=== PATIENT | female | born 1980 | race Caucasian/White ===

== ENCOUNTER 2018-07-06 21:31 | Emergency (ER) | payer OTHER ==
[2018-07-07] MEDS: ONDANSETRON (ODT) 4 MG TAB ODT (00:38)
== END 2018-07-07 01:02 | disposition home or self-care (01) ==
LOC: FTE 21:31
DX: R11.10 Vomiting, unspecified (principal)
CPT/HCPCS: 99283; Z7502

== ENCOUNTER 2018-10-14 19:52 | Emergency (ER) | payer OTHER | END 2018-10-14 21:15 | disposition home or self-care (01) | LOC: FTE 21:15 | DX: F41.9 Anxiety disorder, unspecified (principal) | CPT/HCPCS: 99283; Z7502 ==

== ENCOUNTER 2018-11-24 22:01 | Emergency (ER) | payer OTHER ==
[2018-11-24] MEDS: hydrOXYzine HCL 10 MG TAB PO (23:06)
== END 2018-11-24 23:00 | disposition home or self-care (01) ==
LOC: E/R 22:01
DX: F41.9 Anxiety disorder, unspecified (principal); R07.89 Other chest pain; R21 Rash and other nonspecific skin eruption
CPT/HCPCS: 93005; 99283-25